=== PATIENT | male | born 1975 | race African-American/Black ===

== ENCOUNTER 2020-05-20 16:42 | Emergency (ER) | payer OTHER ==
[~2020-05-20] VITALS: Ht 185.4 cm; Wt 86.2 kg
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
[2020-05-20 17:01] VITALS: BP 122/90
[2020-05-20] MEDS ORDERED: Acetaminophen 500mg (ES) tab ORAL ONE (17:15)
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
[2020-05-20] MEDS ORDERED: ROBAXIN-500MG ORAL (17:37)
[2020-05-20] MEDS ORDERED: IBUPROFEN600 M1 ORAL (17:37)
--- NOTE | 2020-05-20 17:49 | NUR ---
ED Nurse Note: PER PT. HE DID NPT TAKE KG TYLENOL BECAUSE HE DROPPED THE MEDICATION. PT. RECEIVED MOTRIN 600MG.
[2020-05-20 17:50] VITALS: BP 118/75
--- NOTE | 2020-05-20 17:50 | NUR ---
ER DISCHARGE NOTE: Patient is cleared to be discharged per ERMD, pt is aox4, on room air, with stable vital signs. pt was given dc and prescription instructions, pt was able to verbalize understanding, pt id band removed. pt is able to ambulate with steady gait. pt took all belongings.
== END 2020-05-20 17:50 | disposition home or self-care (01) ==
LOC: EMR 17:10
DX: M54.2 Cervicalgia (principal); M54.5 Low back pain; R51.9 Headache, unspecified; M25.531 Pain in right wrist; M25.562 Pain in left knee; M25.561 Pain in right knee; V43.52XA Car driver injured in collision with other type car in traffic accident, initial encounter; Y92.411 Interstate highway as the place of occurrence of the external cause
CPT/HCPCS: 99282

== ENCOUNTER 2020-05-22 18:35 | Emergency (ER) | payer OTHER ==
[~2020-05-22] VITALS: Ht 185.4 cm; Wt 89.8 kg
[~2020-05-22 18:35] MED LIST: IBUPROFEN600 M1 ORAL; ROBAXIN-500MG ORAL
[2020-05-22 18:57] VITALS: BP 127/75
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
--- NOTE | 2020-05-22 19:06 | NUR ---
HAND-OFF: Report given to Ame.
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
--- NOTE | 2020-05-22 19:36 | NUR ---
DR GARCIA TO [facility]
--- NOTE | 2020-05-22 19:51 | NUR ---
PT DISCHED WITH AFTERCARE INSTRUCTIONS AMBULATORY AOX4 RESP EVEN
[2020-05-22 19:54] VITALS: BP 130/78
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
== END 2020-05-22 19:50 | disposition home or self-care (01) ==
LOC: EMR 19:05
DX: S80.12XD Contusion of left lower leg, subsequent encounter (principal); S80.11XD Contusion of right lower leg, subsequent encounter; M25.561 Pain in right knee; M25.562 Pain in left knee; V43.52XD Car driver injured in collision with other type car in traffic accident, subsequent encounter
CPT/HCPCS: 73590; Z7502; 99283

== ENCOUNTER 2020-07-06 10:46 | Emergency (ER) | payer OTHER ==
[~2020-07-06] VITALS: Ht 182.9 cm; Wt 88.5 kg
[2020-07-06 10:55] VITALS: BP 138/84
--- NOTE | 2020-07-06 11:05 | NUR ---
ED Nurse Note: Patient from home and walked in due to right arm and jaw pain x 1 week. No recent reports of injury or fall. Patient is AAO x4, ambulates with steady gait. Able to move his arms without difficulty.
[2020-07-06 11:10] VITALS: BP 120/80
[2020-07-06] MEDS ORDERED: Omnipaque 350 100ml vial INJ PRN (11:30)
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
== END 2020-07-06 11:30 | disposition left against medical advice (07) ==
LOC: EMR 11:30
DX: M54.2 Cervicalgia (principal); M79.601 Pain in right arm
CPT/HCPCS: 99282